=== PATIENT | male | born 1970 | race Caucasian/White ===

== ENCOUNTER 2017-05-28 09:51 | Outpatient (CLI) | payer OTHER | END 2017-05-28 09:52 | disposition home or self-care (01) | LOC: SC 09:51 | PROVIDERS: ATTEND Internal Medicine Pulmonary Disease | DX: G47.30 Sleep apnea, unspecified (principal); G47.10 Hypersomnia, unspecified; G47.8 Other sleep disorders; R06.83 Snoring | CPT/HCPCS: 99203; 99212 ==

== ENCOUNTER 2017-07-09 19:15 | Outpatient (CLI) | payer OTHER | END 2017-07-09 19:16 | disposition home or self-care (01) | LOC: SC 19:15 | PROVIDERS: ATTEND Internal Medicine Pulmonary Disease | DX: G47.30 Sleep apnea, unspecified (principal) | CPT/HCPCS: 95810 ==

== ENCOUNTER 2017-07-23 10:17 | Outpatient (CLI) | payer OTHER | END 2017-07-23 10:18 | disposition home or self-care (01) | LOC: SC 10:17 | PROVIDERS: ATTEND Specialist | DX: R06.83 Snoring (principal) | CPT/HCPCS: 99212; 99213 ==